=== PATIENT | female | born 1965 | race Caucasian/White ===

== ENCOUNTER 2023-08-05 20:13 | Emergency (ER) | payer OTHER ==
[2023-08-05 20:32] VITALS: BP 144/68; PULSE 96; RESP 17; TEMP 97.9; BMI 37.4
[2023-08-05] MEDS ORDERED: ACETAMINOPHEN 1000 MG/100 ML BAG IVPB ONE (21:24)
[2023-08-05] MEDS ORDERED: ACETAMINOPHEN 325 MG TABLET (FP) ONE (21:52)
[2023-08-05] MEDS ORDERED: ACETAMINOPHEN 325 MG TABLET (FP) PO ONE (21:57)
[2023-08-06] MEDS ORDERED: AZITHROMYCIN 250 MG TABLET PO ONE (00:01)
[2023-08-06] MEDS ORDERED: AZITHROMYCIN 500 MG TABLET ONE (00:14)
== END 2023-08-06 00:27 | disposition home or self-care (01) ==
LOC: JER 20:13
DX: R06.02 Shortness of breath (principal); J06.9 Acute upper respiratory infection, unspecified; Z82.5 Family history of asthma and other chronic lower respiratory diseases; Z86.39 Personal history of other endocrine, nutritional and metabolic disease; Z20.822 Contact with and (suspected) exposure to COVID-19
CPT/HCPCS: 0241U-QW; 71046-TC-FY; 82962; 99284-25